=== PATIENT | female | born 1945 | race Caucasian/White ===

== ENCOUNTER 2022-01-17 00:22 | Emergency (ER) | payer MEDICARE, BC | END 2022-01-17 02:12 | disposition home or self-care (01) | LOC: JP.ED 00:22 | DX: N39.0 Urinary tract infection, site not specified (principal); E03.9 Hypothyroidism, unspecified; Z79.899 Other long term (current) drug therapy; Z88.8 Allergy status to other drugs, medicaments and biological substances | CPT/HCPCS: 81001; 87086; 87088; 87186; 99283 ==

== ENCOUNTER 2022-01-17 09:24 | Observation (INO) | payer MEDICARE, BC ==
[2022-01-17] MEDS ORDERED: cefTRIAXone 1 GM, Lidocaine 1% 2.1 ML IM ONE ×2 (10:35)
[2022-01-17] MEDS ORDERED: Ondansetron 4 MG Tab.DIS PO PRN (14:39)
[2022-01-17] MEDS ORDERED: Acetaminophen 325 MG Tab PO PRN (14:39)
[2022-01-17] MEDS ORDERED: Sodium Chloride 0.9% 500 ML IV SCH (14:39)
[2022-01-17] MEDS ORDERED: Ondansetron 4 MG/2 ML SDV IV PRN (14:39)
[2022-01-17] MEDS ORDERED: Melatonin 3 MG Tab PO PRN (14:39)
[2022-01-17] MEDS: Sodium Chloride 0.9% 1,000 ML IV SCH (16:24)
[2022-01-17] MEDS ORDERED: Pramipexole 0.5 MG Tab PO SCH (21:00)
[2022-01-17] MEDS: Carvedilol 12.5 MG Tab PO SCH (21:37)
[2022-01-17] MEDS: Mycophenolate Mofetil 250 MG Cap PO SCH (21:37)
[2022-01-17] MEDS: Lactobacillus Rhamnosus GG (Probiotic) Cap PO SCH (21:38)
[2022-01-18] MEDS: Sodium Chloride 0.9% 1,000 ML IV SCH (02:30)
[2022-01-18] MEDS ORDERED: Levothyroxine 25 MCG Tab PO SCH (07:30)
[2022-01-18] MEDS ORDERED: predniSONE 5 MG Tab PO SCH (08:00)
[2022-01-18] MEDS: Mycophenolate Mofetil 250 MG Cap PO SCH (08:09)
[2022-01-18] MEDS: Carvedilol 12.5 MG Tab PO SCH (08:10)
[2022-01-18] MEDS ORDERED: Hydroxychloroquine 200 MG Tab PO SCH ×2 (09:00→21:00)
[2022-01-18] MEDS ORDERED: Pantoprazole 40 MG Tab.CR PO SCH (09:00)
[2022-01-18] MEDS ORDERED: Aspirin 81 MG Tab.EC PO SCH (09:00)
[2022-01-18] MEDS ORDERED: Lisinopril 20 MG Tab PO SCH ×2 (09:00)
[2022-01-18] MEDS ORDERED: Tacrolimus 0.5 MG Cap PO SCH ×3 (09:00)
[2022-01-18] MEDS ORDERED: atorvaSTATin 10 MG Tab PO SCH (09:00)
[2022-01-18] MEDS: Lactobacillus Rhamnosus GG (Probiotic) Cap PO SCH (09:56)
[2022-01-18] MEDS ORDERED: cefTRIAXone 1 GM in Sodium Chloride 0.9% 50 ML IV SCH ×2 (11:00→12:00)
== END 2022-01-18 12:40 | disposition home or self-care (01) ==
LOC: JP.ED 09:24 → JP.MS 13:24
PROVIDERS: ADMIT Internal Medicine; ATTEND Internal Medicine
DX: E87.1 Hypo-osmolality and hyponatremia (principal); N30.00 Acute cystitis without hematuria; N39.41 Urge incontinence; N39.0 Urinary tract infection, site not specified; E03.9 Hypothyroidism, unspecified; N18.6 End stage renal disease; Q61.3 Polycystic kidney, unspecified; Z20.822 Contact with and (suspected) exposure to COVID-19; Z88.8 Allergy status to other drugs, medicaments and biological substances; Z88.2 Allergy status to sulfonamides; Z88.1 Allergy status to other antibiotic agents; Z79.82 Long term (current) use of aspirin; Z79.899 Other long term (current) drug therapy; Z79.890 Hormone replacement therapy
CPT/HCPCS: 36415; 80048; 81001; 84295; 85025; 87086; 87088; 87186; 96361; 96365; 96372; 99283; 99284; A9270; G0378; J0696; J7030; J7507; J7512; Q0162; U0002